=== PATIENT | female | born 1930 | race Caucasian/White ===

== ENCOUNTER 2016-10-14 18:18 | Inpatient (IN) | payer OTHER ==
[~2016-10-14] VITALS: Ht 170.2 cm; Wt 55.9 kg
[2016-10-14] VITALS (10 sets, daily range): BP systolic 89–123; BP diastolic 54–92
[~2016-10-14 18:18] MED LIST: ASPI-621 PO; CEFU500T PO; HYDR-3138 PO; LACT20SO13 PO; LISI-170 PO; METF10002 PO; METO25TA35 PO
[2016-10-14] MEDS: PANTOPRAZOLE 80 MG in SODIUM CHLORIDE 0.9% 100 ML IV SCH (18:29)
[2016-10-14] MEDS ORDERED: PANTOPRAZOLE 80 MG in SODIUM CHLORIDE 0.9% 50 ML IVPB ONE (18:29)
[2016-10-14] MEDS ORDERED: SODIUM CHLORIDE 0.9% 1,000ML IVBOLUS ONE ×2 (18:30→19:30)
[2016-10-14] MEDS ORDERED: SODIUM CHLORIDE FLUSH 10ML SYR IVF ONE (18:30)
[2016-10-14 19:06] LABS: ASPARTATE AMINO TRANSFERASE 10 U/L (15-37); BLOOD UREA NITROGEN 71 mg/dL (7-18)
[2016-10-14] MEDS ORDERED: HYDROmorphone 2 MG/ML, 1ML IVPush PRN (21:00)
[2016-10-14] MEDS ORDERED: ONDANSETRON 2MG/ML, 2ML IVPush PRN (21:00)
[2016-10-14] MEDS ORDERED: INSULIN DETEMIR 100 UNITS/ML, PEN SQ-INSULIN SCH (21:00)
[2016-10-14] MEDS ORDERED: TEMAZEPAM 15 MG CAPSULE PO PRN (21:00)
[2016-10-14] MEDS ORDERED: DEXTROSE 50%, 50ML SYRINGE IVPush PRN (21:00)
[2016-10-14] MEDS ORDERED: GLUCAGON 1 MG IM PRN (21:00)
[2016-10-14] MEDS ORDERED: DEXTROSE 4 GM TAB.CHEW PO PRN (21:00)
[2016-10-14 21:29] LABS: PATH.CAST-FLAG NOT PRESENT; SPERM-FLAG NOT PRESENT; SRC-FLAG NOT PRESENT; XTAL-FLAG NOT PRESENT; YLC-FLAG NOT PRESENT
[2016-10-14] MEDS ORDERED: PHYTONADIONE 10 MG in SODIUM CHLORIDE 0.9% 50 ML IV ONE (22:00)
[2016-10-14] MEDS: SODIUM CHLORIDE 0.9% 1,000 ML IV SCH (22:54)
[2016-10-14] MEDS: SODIUM CHLORIDE FLUSH 10ML SYR IVF SCH (22:54)
[2016-10-14] MEDS: PANTOPRAZOLE 40 MG IV IVPush SCH (22:55)
[2016-10-14] MEDS: INSULIN ASPART 100 UNITS/ML, PEN SQ-INSULIN SCH (23:10)
[2016-10-15] MEDS: PANTOPRAZOLE 80 MG in SODIUM CHLORIDE 0.9% 100 ML IV SCH (00:18)
[2016-10-15 04:12] VITALS: BP 102/75
[2016-10-15 06:23] LABS: ASPARTATE AMINO TRANSFERASE 9 U/L (15-37); BLOOD UREA NITROGEN 63 mg/dL (7-18)
[2016-10-15] MEDS: SODIUM CHLORIDE 0.9% 1,000 ML IV SCH (06:41)
[2016-10-15] MEDS: INSULIN ASPART 100 UNITS/ML, PEN SQ-INSULIN SCH (08:00)
[2016-10-15 09:21] VITALS: BP 93/61
[2016-10-15 09:37] VITALS: BP 82/58
[2016-10-15] MEDS: PANTOPRAZOLE 40 MG IV IVPush SCH ×2 (11:06→21:00)
[2016-10-15] MEDS: SODIUM CHLORIDE FLUSH 10ML SYR IVF SCH ×2 (11:06→21:00)
[2016-10-15 11:07] VITALS: BP 91/69
[2016-10-15] MEDS: INSULIN ASPART 100 UNITS/ML, 3ML PEN MEDIUM DOSE SS SQ-INSULIN SCH ×3 (12:01→21:02)
[2016-10-15 12:17] LABS: BLOOD UREA NITROGEN 56 mg/dL (7-18)
[2016-10-15] MEDS ORDERED: FENTANYL PF 100 MCG/2ML ONE (12:33)
[2016-10-15] MEDS ORDERED: MIDAZOLAM 1 MG/ML, 5ML ONE (12:34)
[2016-10-15] MEDS ORDERED: SODIUM CHLORIDE 0.45% 1,000 ML IV SCH (17:30)
[2016-10-15] MEDS ORDERED: POTASSIUM PHOSPHATE 44 MEQ in SODIUM CHLORIDE 0.9% 500 ML IV ONE (17:30)
[2016-10-15] MEDS ORDERED: MAGNESIUM SULFATE PMX 2GM/50ML 50 ML IV ONE (17:30)
[2016-10-15] MEDS: SODIUM CHLORIDE 0.45% 1,000 ML IV SCH (17:42)
[2016-10-15] MEDS ORDERED: INSULIN DETEMIR 100 UNITS/ML, PEN SQ-INSULIN SCH (21:00)
[2016-10-15] MEDS: INSULIN DETEMIR 100 UNITS/ML, PEN SQ-INSULIN SCH (21:02)
[2016-10-16 03:02] LABS: BLOOD UREA NITROGEN 25 mg/dL (7-18)
[2016-10-16 04:39] VITALS: BP 137/66
[2016-10-16] MEDS: SODIUM CHLORIDE 0.45% 1,000 ML IV SCH (04:39)
[2016-10-16] MEDS: INSULIN ASPART 100 UNITS/ML, 3ML PEN MEDIUM DOSE SS SQ-INSULIN SCH ×4 (07:30→21:44)
[2016-10-16] MEDS ORDERED: POTASSIUM CHLORIDE 20 MEQ TAB.ER.PRT PO ONE (09:00)
[2016-10-16] MEDS: CEFTRIAXONE PMX 1GM/50ML 50 ML IV SCH (09:31)
[2016-10-16] MEDS: PANTOPRAZOLE 40 MG IV IVPush SCH ×2 (09:31→21:28)
[2016-10-16] MEDS: SODIUM CHLORIDE FLUSH 10ML SYR IVF SCH ×2 (09:31→21:28)
[2016-10-16] MEDS ORDERED: DEXTROSE 4 GM TAB.CHEW PO PRN (13:30)
[2016-10-16] MEDS ORDERED: DEXTROSE 50%, 50ML SYRINGE IVPush PRN (13:30)
[2016-10-16] MEDS ORDERED: GLUCAGON 1 MG IM PRN (13:30)
[2016-10-16 15:06] VITALS: BP 151/69
[2016-10-16 20:05] VITALS: BP 147/64
[2016-10-16] MEDS: INSULIN DETEMIR 100 UNITS/ML, PEN SQ-INSULIN SCH (21:43)
[2016-10-17 00:37] VITALS: BP_SYST 191; BP_SYST 91; BP_DIAS 60; BP_DIAS 76
[2016-10-17 01:00] VITALS: BP_SYST 174; BP_SYST 91; BP_DIAS 60; BP_DIAS 67
[2016-10-17 05:32] LABS: BLOOD UREA NITROGEN 11 mg/dL (7-18)
[2016-10-17 07:01] VITALS: BP 129/54
[2016-10-17] MEDS: INSULIN ASPART 100 UNITS/ML, 3ML PEN MEDIUM DOSE SS SQ-INSULIN SCH ×2 (07:23→11:51)
[2016-10-17] MEDS: CEFTRIAXONE PMX 1GM/50ML 50 ML IV SCH (09:07)
[2016-10-17] MEDS: SODIUM CHLORIDE FLUSH 10ML SYR IVF SCH (09:07)
[2016-10-17] MEDS: PANTOPRAZOLE 40 MG IV IVPush SCH (09:07)
[2016-10-17] MEDS ORDERED: PANT40TA3 PO (13:53)
[2016-10-17] MEDS ORDERED: CIPR500T87 PO (13:53)
[2016-10-17 14:08] VITALS: BP 146/78
== END 2016-10-17 14:25 | disposition home or self-care (01) | DRG 377 ==
LOC: ED 19:35 → EDIP 20:26 → CCU 22:02 → 4NOR 10-16 14:57
PROVIDERS: ADMIT Internal Medicine; ATTEND Internal Medicine
PROC: 30233N1 Transfusion of Nonautologous Red Blood Cells into Peripheral Vein, Percutaneous Approach (ICD-10-PCS; principal; 2016-10-14)
PROC: 30233N1 Transfusion of Nonautologous Red Blood Cells into Peripheral Vein, Percutaneous Approach (ICD-10-PCS; 2016-10-15)
PROC: 0W3P8ZZ Control Bleeding in Gastrointestinal Tract, Via Natural or Artificial Opening Endoscopic (ICD-10-PCS; 2016-10-15)
DX: K25.4 Chronic or unspecified gastric ulcer with hemorrhage (principal); E43 Unspecified severe protein-calorie malnutrition; D62 Acute posthemorrhagic anemia; N39.0 Urinary tract infection, site not specified; D68.8 Other specified coagulation defects; K92.0 Hematemesis; B96.20 Unspecified Escherichia coli [E. coli] as the cause of diseases classified elsewhere; E86.9 Volume depletion, unspecified; I10 Essential (primary) hypertension; K44.9 Diaphragmatic hernia without obstruction or gangrene; E11.65 Type 2 diabetes mellitus with hyperglycemia; I95.9 Hypotension, unspecified; K21.9 Gastro-esophageal reflux disease without esophagitis; Z66 Do not resuscitate; E86.1 Hypovolemia; Z79.82 Long term (current) use of aspirin
CPT/HCPCS: 36415; 80048; 80053; 81001; 82962; 83036; 83690; 83735; 84100; 85014; 85018; 85025; 85610; 85730; 86850; 86900; 86923; 87077; 87081; 87086; 87186; 93005; 96361; 96365; 99152; 99153; J0696; J1815; J2250; J3010; J3430; C9113; J3475; J7030; J7040; P9016

== ENCOUNTER → 2016-10-28 | Outpatient (CLI) | payer OTHER ==
[~2016-10-28] MED LIST changes: +CIPR500T87 PO; +OMNIPAQUE 350 MG/ML, 100ML BOTTLE ONE; +PANT40TA3 PO
== END | disposition home or self-care (01) ==
LOC: RAD 12:58
PROVIDERS: ATTEND Internal Medicine
DX: I77.810 Thoracic aortic ectasia (principal); E04.2 Nontoxic multinodular goiter
CPT/HCPCS: 71275; Q9967